=== PATIENT | male | born 1960 | race Caucasian/White ===

== ENCOUNTER 2016-05-25 22:42 | Emergency (ER) | payer BC ==
[~2016-05-25] VITALS: Ht 182.9 cm; Wt 88.5 kg
[~2016-05-25 22:42] MED LIST: ASPEC81 PO; ATOR-24 PO; CLOP1TAB15 PO; LISI-461 PO; METO1TAB69 PO; NTRSLP4 SL
[2016-05-25 22:44] VITALS: BP 118/75; PULSE 107; TEMP 36.6; O2SAT 97; Ht 182.9 cm; Wt 88.5 kg
--- NOTE | 2016-05-25 23:48 | DIAGNOSTIC IMAGING REPORT ---
SINGLE VIEW PELVIS; 2 VIEWS RIGHT HIP CLINICAL HISTORY: Fall with right hip pain. FINDINGS: 2 AP pelvic radiographs with AP and frog-leg views of the right hip are obtained. No prior studies are available for comparison at the time of dictation. The skeletal structures are well mineralized. No fracture is seen in the hips or bony pelvis. The joint spaces of the hips are preserved. The sacroiliac joints are normal in appearance. The overlying soft tissues are normal as visualized. IMPRESSION: There is no radiographic evidence of fracture in the hips or bony pelvis. Electronically signed by: Dusty Buenrostro M.D. 05/25/2016 11:46 PM Dictated Date/Time: 05/25/2016 11:45 PM
[2016-05-26] MEDS ORDERED: ASPI81TA28 PO (00:01)
--- NOTE | 2016-05-26 01:14 | EMERGENCY ROOM VISIT NOTE ---
History Report prepared by Morris: Christy Joseph Under the Supervision of: Dr. Reed Hargrove D.O. First contact with patient: 23:11 Chief Complaint: HIP PAIN Stated Complaint: FELL ON ICE,BACK PAIN History of Present Illness The patient is a 56 year old male who presents to the Emergency Room via with complaints of worsening right hip pain following a fall this afternoon. He rates his pain as a 10/10. Today, the patient was getting out of his truck when he slipped on some ice and fell onto his back. The patient is unable to bear weight on his right leg. His right leg is now numb. Source of History: patient Onset: this afternoon Position: other (right hip) Symptom Intensity: 10/10 Quality: other (hip pain) Timing: worsening Associated Symptoms: + numbness Note: The patient is unable to bear weight on his right leg. Review of Systems See HPI for pertinent positives & negatives. A total of 10 systems reviewed and were otherwise negative. Past Medical & Surgical Medical Problems: (1) FX ANKLE NOS-CLOSED Family History Patient reports no known family medical history. Social History Smoking Status: Current Every Day Smoker Alcohol Use: occasionally Marital Status: Occupation Status: employed Current/Historical Medications Scheduled Aspirin (Aspirin Ec), 81 MG PO DAILY Atorvastatin (Lipitor), 80 MG PO DAILY Clopidogrel (Plavix), 75 MG PO DAILY Lisinopril (Zestril), 10 MG PO DAILY Metoprolol Succ (Toprol Xl) (Toprol-Xl ), 100 MG PO DAILY Scheduled PRN [Ntrslp4], 0.4 MG SL UD PRN Allergies Coded Allergies: No Known Allergies (Verified , 05/26/16) Physical Exam Vital Signs Date Time Temp Pulse Resp B/P Pulse Ox O2 Delivery O2 Flow Rate FiO2 05/25/16 22:44 36.6 107 18 118/75 97 Room Air Physical Exam CONSTITUTIONAL/VITAL SIGNS: Reviewed / noted above. GENERAL: Non-toxic in appearance. INTEGUMENTARY: Warm, dry, and [place]. HEAD: Normocephalic. EYES: without scleral icterus or trauma. ENT/OROPHARYNX: clear and moist. LYMPHADENOPATHY/NECK: Is supple without lymphadenopathy or meningismus. RESPIRATORY: Lungs clear and equal. CARDIOVASCULAR: Regular rate and rhythm. GI/ABDOMEN: Soft and nontender. No organomegaly or pulsatile mass. No rebound or guarding. Normal bowel sounds. EXTREMITIES: Warm and well perfused. BACK: No CVA tenderness. NEUROLOGICAL: Intact without focal deficits. PSYCHIATRIC: normal affect. MUSCULOSKELETAL: Normally developed with good muscle tone. Tenderness to palpation over the right lateral hip and posterior iliac crest and upper gluteal region on the right. Medical Decision & Procedures ER Provider Diagnostic Interpretation: X ray results and stated below per my interpretation and radiology interpretation. SINGLE VIEW PELVIS; 2 VIEWS RIGHT HIP CLINICAL HISTORY: Fall with right hip pain. FINDINGS: 2 AP pelvic radiographs with AP and frog-leg views of the right hip are obtained. No prior studies are available for comparison at the time of dictation. The skeletal structures are well mineralized. No fracture is seen in the hips or bony pelvis. The joint spaces of the hips are preserved. The sacroiliac joints are normal in appearance. The overlying soft tissues are normal as visualized. IMPRESSION: There is no radiographic evidence of fracture in the hips or bony pelvis. Electronically signed by: Dusty Buenrosrto M.D. 05/25/2016 11:46 PM Dictated Date/Time: 05/25/2016 11:45 PM ED Course 2313: Previous medical records were reviewed. The patient was evaluated in room C8. A complete history and physical examination was performed. 0114: On reevaluation, the patient is doing well. I discussed the results and findings with the patient. He verbalized agreement of the treatment plan. The patient was discharged home. Medical Decision The patient is a 56 year old male who presents to the ED with complaints of hip pain. The patient states that he slipped on the ice earlier today and landed on his hip. He is complaining of pain in that area as detailed above. An x- ray of the pelvis and hip did not reveal any bony abnormality. The patient abdominal pain medication. He is felt to be stable for discharge and outpatient follow-up. Differential diagnosis: Etiologies such as fracture, dislocation, intra-abdominal, pneumothorax, intrathoracic , intracranial, neurologic, as well as other traumatic pathologies were entertained. Impression Primary Impression: Contusion, hip Scribe Attestation The scribe's documentation has been prepared under my direction and personally reviewed by me in its entirety. I confirm that the note above accurately reflects all work, treatment, procedures, and medical decision making performed by me. Departure Information Dispostion Home / Self-Care Referrals Keaton Jackson M.D. (PCP) Patient Instructions My [facility]
[2016-05-27] MEDS ORDERED: PRED20TA PO (13:49)
[2016-05-27] MEDS ORDERED: OXYC-57 PO (13:49)
[2016-05-27] MEDS ORDERED: DOCU-94 PO (13:49)
== END 2016-05-26 01:15 | disposition home or self-care (01) ==
LOC: C.EDB 22:42 → C.EDC 05-26 01:15
DX: S70.01XA Contusion of right hip, initial encounter (principal); W01.0XXA Fall on same level from slipping, tripping and stumbling without subsequent striking against object, initial encounter; F17.210 Nicotine dependence, cigarettes, uncomplicated; Z79.82 Long term (current) use of aspirin; Z79.899 Other long term (current) drug therapy; Z87.81 Personal history of (healed) traumatic fracture

== ENCOUNTER 2016-05-27 09:08 | Emergency (ER) | payer BC ==
[~2016-05-27] VITALS: Ht 188 cm; Wt 89.0 kg
[~2016-05-27 09:08] MED LIST changes: -ASPEC81 PO; +ASPI81TA28 PO
[2016-05-27 09:21] VITALS: TEMP 36.8; Ht 188 cm; Wt 89.0 kg
--- NOTE | 2016-05-27 09:56 | EMERGENCY ROOM VISIT NOTE ---
History Report prepared by Shanellibwil: Aimee Purcell Under the Supervision of: Dr. Herber Montoya M.D. First contact with patient: 09:46 Chief Complaint: BACK PAIN Stated Complaint: BACK PAIN-FELL ON ICE SATURDAY History of Present Illness The patient is a 56 year old male who presents to the Emergency Room with complaints of worsening back pain. He slipped and fell on ice 3 days ago and landed on his low back. He was seen here in the ED the night he fell and had a hip X-Ray, which was negative for fracture. The patient rates his current pain as an 8/10 and reports the pain radiates down his right leg. Movement and ambulation worsen his discomfort. He still has normal sensation in both legs and denies any numbness or weakness. He denies any other symptoms currently. 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 Please see Additional Medical History Sheet. Past Medical & Surgical Medical Problems: (1) FX ANKLE NOS-CLOSED Family History Patient reports no known family medical history. Social History Smoking Status: Current Every Day Smoker Alcohol Use: occasionally Drug Use: none Marital Status: Housing Status: lives with family Occupation Status: employed Current/Historical Medications Scheduled Aspirin (Aspirin Ec), 81 MG PO DAILY Atorvastatin (Lipitor), 80 MG PO DAILY Clopidogrel (Plavix), 75 MG PO DAILY Docusate Sodium (Colace), 100 MG PO BID Lisinopril (Zestril), 10 MG PO DAILY Metoprolol Succ (Toprol Xl) (Toprol-Xl ), 100 MG PO DAILY Prednisone (Prednisone), 20 MG PO BID Scheduled PRN Oxycodone/Acetaminophen 5MG/325MG (Percocet 5MG/325MG), 1-2 TABLETS PO Q4H PRN for Pain [Ntrslp4], 0.4 MG SL UD PRN Allergies Coded Allergies: No Known Allergies (Verified , 05/27/16) Physical Exam Vital Signs Date Time Temp Pulse Resp B/P Pulse Ox O2 Delivery O2 Flow Rate FiO2 05/27/16 14:06 76 18 146/72 96 05/27/16 13:07 77 16 145/72 97 Room Air 05/27/16 10:53 93 18 149/83 98 Room Air 05/27/16 09:21 36.8 93 18 166/91 98 Room Air Physical Exam GENERAL: Patient awake, alert, oriented x 3. Patient follows commands. Patient does not appear toxic. Patient is adequately hydrated and well- nourished. SKIN: No erythema, pallor, cyanosis or rash HEENT: Normal head, pupils equal, reactive to light and accommodation. Ears normal. Oral cavity and posterior pharynx appear normal. Neck: Without adenopathy, no neck vein distention. LUNGS: Clear to auscultation. No wheezes, no rales, no rhonchi. BACK: Some ecchymosis to lateral L4 and L5 area. Some tenderness along L4 and L5. HEART: No murmurs. No gallops. No rubs ABDOMEN: No masses, no rebound, no hepatomegaly or splenomegaly. EXTREMITIES: No signs of trauma. No pedal or pretibial edema. No calf or thigh tenderness. Motor, neuro and sensation are intact. NEUROLOGIC: Cranial nerves II-XII within normal limits. No gross motor sensory function deficits. Deep tendon reflexes are brisk and equal bilaterally. Medical Decision & Procedures ER Provider Diagnostic Interpretation: This X-Ray was reviewed and interpreted by myself and the radiologist. L-SPINE MIN 4 VIEWS ROUTINE IMPRESSION: 1. No acute lumbar spine fracture or subluxation identified. 2. Multilevel degenerative disc disease, most pronounced at L5-S1. Electronically signed by: Gagan Gay M.D. 05/27/2016 10:23 AM This MRI was reviewed and interpreted by the radiologist and reviewed by myself. MRI OF THE LUMBAR SPINE WITHOUT CONTRAST IMPRESSION: 1. No acute traumatic findings within the lumbar spine by MRI. No fracture. 2. Mild multilevel degenerative disc disease at L4-L5 and L5-S1. No significant canal stenosis. Mild to moderate bilateral neural foraminal narrowing at L5-S1. Electronically signed by: Gagan Gay M.D. 05/27/2016 12:40 PM Laboratory Results 05/27/16 10:51 05/27/16 10:51 Test 05/27/16 10:51 Red Blood Count 4.21 M/uL (4.7-6.1) Mean Corpuscular Volume 94.8 fL (80-100) Mean Corpuscular Hemoglobin 33.3 pg (25-34) Mean Corpuscular Hemoglobin Concent 35.1 g/dl (32-36) RDW Standard Deviation 46.7 fL (36.4-46.3) RDW Coefficient of Variation 13.5 % (11.5-14.5) Mean Platelet Volume 9.6 fL (7.4-10.4) Anion Gap 9.0 mmol/L (3-11) Est Creatinine Clear Calc Drug Dose 119.9 ml/min Estimated GFR () 116.0 Estimated GFR (Non- 100.1 BUN/Creatinine Ratio 15.4 (10-20) Calcium Level 8.7 mg/dl (8.5-10.1) Laboratory results as stated above per my review. Medications Administered Medications (Trade) Dose Ordered Sig/Kelly Route Start Time Stop Time Status Last Admin Dose Admin Oxycodone/ Acetaminophen (Percocet 5-325mg Tab) 2 tab NOW ONCE PO 05/27/16 10:00 05/27/16 10:01 DC 05/27/16 09:55 2 TAB Morphine Sulfate (MoRPHine SULFATE INJ) 8 mg Q1H PRN IV 05/27/16 11:00 05/27/16 14:47 DC 05/27/16 13:55 8 MG Ondansetron HCl (Zofran Inj) 4 mg Q1HWA PRN IV 05/27/16 11:00 05/27/16 14:47 DC 05/27/16 11:08 4 MG ED Course 0948: Past medical records reviewed. The patient was evaluated in room B10. A complete history and physical examination was performed. 1000: Percocet 5/325 mg 2 tab PO. 1100: Zofran 4 mg IV, Morphine Sulfate 8 mg IV. 1105: I reevaluated the patient. He is resting comfortably. 1335: I reevaluated the patient. He is feeling much better. I discussed his results and discharge instructions and he verbalized complete understanding and agreement. Medical Decision The differential diagnoses considered include: Lumbosacral fracture, contusion, cauda equina syndrome. Lumbar spine x-rays followed by MRI were performed. The patient does have significant degenerative changes with some narrowing of his canal. I believe this is the cause of his pain. He was much improved prior to discharge. The patient will be placed on steroids and pain medication. He is to follow-up with his family physician most likely will require evaluation by a back surgeon. [place] Drug Monitoring Program Search Results: no issues identified Impression Primary Impression: Degenerative joint disease (DJD) of lumbar spine Additional Impression: Sciatica Scribe Attestation The scribe's documentation has been prepared under my direction and personally reviewed by me in its entirety. I confirm that the note above accurately reflects all work, treatment, procedures, and medical decision making performed by me. Departure Information Dispostion Home / Self-Care Prescriptions Oxycodone/Acetaminophen 5MG/325MG (PERCOCET 5MG/325MG) Tab 1-2 TABLETS PO Q4H Y for Pain, #30 TAB Prov: Herber Montoya M.D. 05/27/16 Docusate Sodium (COLACE) 100 Mg Cap 100 MG PO BID, #20 CAP Prov: Herber Montoya M.D. 05/27/16 Prednisone (Prednisone) 20 Mg Tab 20 MG PO BID for 5 Days, #10 TAB Prov: Herber Montoya M.D. 05/27/16 Referrals Keaton Jackson M.D. (PCP) Patient Instructions ED Sciatica, My [facility] Additional Instructions 20 mg of prednisone twice a day for 5 days. 1-2 Percocet every 4 hours as needed for moderate to severe pain. Do not drive or operate machinery while taking Percocet. 1 Colace twice a day as long as you are taking Percocet. Follow-up with your family physician within the next 7 days. Work Instructions Return To Work: 3 days Specific Date: 05/31/16 Problem Qualifiers
[2016-05-27] MEDS ORDERED: OXYCODONE/ACETAMINOPHEN 5-325 TAB PO ONE (10:00)
--- NOTE | 2016-05-27 10:25 | DIAGNOSTIC IMAGING REPORT ---
L-SPINE MIN 4 VIEWS ROUTINE CLINICAL HISTORY: Fall. Suspect L4-L5 fracture. COMPARISON: Lumbar spine radiographs June 01, 2008. FINDINGS: Alignment of lumbar spine is anatomic. No acute fracture is identified. There is mild to moderate multilevel degenerative disc disease most pronounced at L5-S1. IMPRESSION: 1. No acute lumbar spine fracture or subluxation identified. 2. Multilevel degenerative disc disease, most pronounced at L5-S1. Electronically signed by: Gagan Gay M.D. 05/27/2016 10:23 AM Dictated Date/Time: 05/27/2016 10:21 AM
[2016-05-27] MEDS ORDERED: ONDANSETRON INJ 2 MG/ML 2 ML VIAL IV PRN (11:00)
[2016-05-27] MEDS: MoRPHine SULFATE 10 MG/ML CARP/VIAL IV PRN ×2 (11:08→13:55)
[2016-05-27 11:13] LABS: HEMATOCRIT 39.9 % (42-52); MEAN CELL VOLUME 94.8 fL (80-100); MEAN CORPUSCULAR HEMOGLOBIN 33.3 pg (25-34); MEAN CORPUSCULAR HGB CONC 35.1 g/dl (32-36); MEAN PLATELET VOLUME 9.6 fL (7.4-10.4); PLATELET COUNT 227 K/uL (130-400); RED BLOOD COUNT 4.21 M/uL (4.7-6.1); WHITE BLOOD COUNT 8.28 K/uL (4.8-10.8)
[2016-05-27 11:30] LABS: BUN/CREATININE RATIO 15.4 (10-20); CALCIUM 8.7 mg/dl (8.5-10.1); CREATININE 0.81 mg/dl (0.60-1.40); POTASSIUM 4.2 mmol/L (3.5-5.1)
--- NOTE | 2016-05-27 12:41 | DIAGNOSTIC IMAGING REPORT ---
MRI OF THE LUMBAR SPINE WITHOUT CONTRAST CLINICAL HISTORY: Severe lower lumbar pain following fall 2 days ago. COMPARISON STUDY: Lumbar spine radiographs June 01, 2008 and May 27, 2016. TECHNIQUE: Utilizing a 1.5 Carri magnet and dedicated coil, multiplanar, multiecho imaging of the lumbar spine was performed without IV contrast. FINDINGS: For purposes of numbering on this exam, the L5-S1 disc space is assigned to axial image 23 of 25. Alignment of the lumbar spine is anatomic with the exception of slight retrolisthesis of L5 on S1. Vertebral body heights are maintained. There is no evidence for fracture. The conus terminates at the upper L1 level. There is no intracanalicular mass or fluid collection. Paravertebral soft tissues are unremarkable. L1-2: The central canal and neural foramen are patent. L2-3: The central canal and neural foramen are patent. L3-4: There is mild facet arthrosis. The central canal and neural foramen are patent. L4-5: There is minimal disc bulge with a tiny central disc protrusion. Mild facet arthrosis is present. The central canal and neural foramen are patent. L5-S1: There is disc space narrowing with disc bulge, ligamentous hypertrophy and facet arthrosis. The central canal and lateral recesses are patent. There is mild to moderate narrowing of the right neural foramen as well as the left neural foramen. IMPRESSION: 1. No acute traumatic findings within the lumbar spine by MRI. No fracture. 2. Mild multilevel degenerative disc disease at L4-L5 and L5-S1. No significant canal stenosis. Mild to moderate bilateral neural foraminal narrowing at L5-S1. Electronically signed by: Gagan Gay M.D. 05/27/2016 12:40 PM Dictated Date/Time: 05/27/2016 12:36 PM
[2016-05-27] MEDS ORDERED: OXYC-57 PO (13:49)
[2016-05-27] MEDS ORDERED: DOCU-94 PO (13:49)
[2016-05-27] MEDS ORDERED: PRED20TA PO (13:49)
[2016-05-27 14:06] VITALS: BP 146/72; PULSE 76; O2SAT 96
== END 2016-05-27 14:08 | disposition home or self-care (01) ==
LOC: C.EDB 09:09
DX: M47.816 Spondylosis without myelopathy or radiculopathy, lumbar region (principal); M54.30 Sciatica, unspecified side; F17.210 Nicotine dependence, cigarettes, uncomplicated; Z79.82 Long term (current) use of aspirin; Z79.02 Long term (current) use of antithrombotics/antiplatelets; Z79.899 Other long term (current) drug therapy

== ENCOUNTER 2023-03-23 16:41 | Observation (INO) ==
--- OUTSIDE RECORDS SUMMARY | 2023-03-23 16:47 | External Medical Summary ---
Author Name Unknown Address Unknown Organization : Laboratory Report Ordering Provider Test Date Status VIOLETDANIEL 02/27/2023 11:52:00 Final Observation Date Value Abnormality Reference (Units ) Status Color of Urine by Auto 02/27/2023 11:52:00 Sanjuana Abnormal Light Yellow, Yellow Final Clarity, Urine 02/27/2023 11:52:00 Clear Clear Final Glucose [Mass/volume] in Urine by Automated test strip 02/27/2023 11:52:00 Negative Negative (mg/dL) Final Bilirubin.total [Presence] in Urine by Automated test strip 02/27/2023 11:52:00 Moderate Abnormal Negative Final Ketones [Mass/volume] in Urine by Automated test strip 02/27/2023 11:52:00 15 Abnormal Negative (mg/dL) Final Specific gravity, Urine 02/27/2023 11:52:00 >=1.030 1.003-1.030 Final Hemoglobin [Presence] in Urine by Automated test strip 02/27/2023 11:52:00 Negative Negative Final pH, Urine 02/27/2023 11:52:00 5.5 5.0, 5.5, 6.0, 6.5, 7.0, 7.5 (units) Final Protein [Mass/volume] in Urine by Automated test strip 02/27/2023 11:52:00 30 Abnormal Negative (mg/dL) Final Urobilinogen, Urine 02/27/2023 11:52:00 0.2 0.2, 1.0 (mg/dL) Final Nitrite [Presence] in Urine by Automated test strip 02/27/2023 11:52:00 Negative Negative Final Leukocyte esterase [Presence] in Urine by Automated test strip 02/27/2023 11:52:00 Negative Negative Final Performing Location
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
--- OUTSIDE RECORDS SUMMARY | 2023-03-23 16:47 | External Medical Summary | Summary of Care ---
Author Name Unknown Organization [facility] Address [address] [facility] [address] Phone [phone] Care Team Providers Care Automatic Data Processing Planner Name Role Phone Dre Randle MD Primary Care Provider +1- [phone] Reason for Visit * Reason Comments eRx-Medication Refill Encounter Details Date Type Department Care Team (Late st Contact Info) Description 02/13/2023 Refill Cardiology, [facility] [address] [place] [address] Rajwinder Isaacs PA-C [address] [place] [phone] Allergies No known active allergiesdocumented as of this encounter (statuses as of 02/13/2023) Medications Medication Sig Dispensed Refills Start Date [...] evening (anxiety). 60 Tablet 1 06/16/2021 Active Escitalopram Oxalate 10 MG Oral Tablet (Lexapro)Indicati ons:Anxiety associated with depression Take by mouth 1 Tablet in the morning. 1/2 tab daily for 1st 7 days then 1 tab daily. 30 Tablet 5 07/13/2021 Active Metoprolol Succinate ER 100 MG Oral Tablet Extended Release 24 Hour (toPROL XL)Indications:Co ronary artery disease due to lipid rich plaque,HTN, goal below 130/80,Presence of drug coated stent in right coronary artery Take 1 Tablet by mouth daily. 90 Tablet 3 06/07/2022 Active Clopidogrel Bisulfate 75 MG Oral Tablet (pLAVix)Indicatio ns:Coronary artery disease involving mechoopda coronary artery of mechoopda heart without angina pectoris Take 1 Tablet by mouth daily. 90 Tablet 3 06/07/2022 Active Lisinopril 10 MG Oral Tablet (Prinivil)Indicat ions:CAD (coronary artery disease) Take 1 Tablet by mouth daily. 90 Tablet 3 06/07/2022 Active predniSONE 10 MG Oral Tablet (Deltasone)Indica tions:Allergic reaction, initial encounter Take 5 tabs for 2 days, 4 tabs for 2 days, 3 tabs for 2 days, 2 tabs for 2 days 1 tab for 2 days 30 Tablet 0 12/09/2022 Active Rosuvastatin Calcium 40 MG Oral Tablet (Crestor) TAKE 1 TABLET IN THE MORNING 90 Tablet 3 02/13/2023 Active Rosuvastatin Calcium 40 MG Oral Tablet (Crestor) Take 1 Tablet (40 mg) by mouth in the morning. 90 Tablet 3 03/22/2022 02/13/2023 Discontinued documented as of this encounter (statuses as of 02/13/2023) Active Problems Problem Noted Date Diagnosed Date Anxiety associated with depression 04/05/2021 Pain of [...] as of this encounter (statuses as of 02/13/2023) Resolved Problems Problem Noted Date Diagnosed Date Resolved Date HTN, goal below 130/80 05/09/201206/22 Elevated blood pressure, situational 10/24/2007 05/09/2012 documented as of this encounter (statuses as of 02/13/2023) Immunizations Name Administration Dates Next Due COVID-19 mRNA, LNP-s, No Pre serve, 2-Dose Series ([employer]) 02/09/2021 SEASONAL INFLUENZA, PF, 6 M & [...] 0.6 oz pure alcohol) 5-8 every weekend Sex and Gender Information Value Date Recorded Sex Assigned at Not on file Gender Identity Not on file Sexual Orientation Not on file Job Start Date Occupation Industry Not on file Not on file Not on file documented as of this encounter Miscellaneous Notes * Telephone Encounter - Rajwinder Isaacs PA-C - 02/13/2023 4:43 PM EDTSigned Prescriptions: Disp Refills Rosuvastatin Calcium 40 MG Oral Tablet (Cr*90 Tab*3 Sig: TAKE 1 TABLET IN THE MORNING Authorizing Provider: RAJWINDER ISAACS * Telephone Encounter - Leda Franklin LPN - 02/13/2023 1:52 PM EDTPending Prescriptions: Disp Refills Rosuvastatin Calcium 40 MG Oral Tablet [Ph*90 Tab*3 Sig: TAKE 1 TABLET IN THE MORNING * Telephone Encounter - Leda Franklin LPN - 02/13/2023 1:52 PM EDT Pending Prescriptions: Disp Refills Rosuvastatin Calcium 40 MG Oral Tablet (C*90 Tab*3 Sig: TAKE 1 TABLET IN THE MORNING documented in this encounter Plan of Treatment Upcoming Encounters Date Type Department Care Team (Late st Contact Info) Description 02/20/2023 8:30 AM EST Office Visit Cardiology, [facility] [address] [facility] [place] [address] Rajwinder Isaacs PA-C [address] [facility] [place] [phone] Scheduled Procedures Name Priority Associated Diagnoses Date/Ti me COLONOSCOPY FLEXIBLE PROXIMAL DIAGNOSTIC Recall History of colon polyps Health Maintenance Due Date Last Done Comments DISCUSS TOBACCO CESSATION (REFER TO SMARTSET #7382) 1960 Pneumococcal Vaccine: Pediatrics (0 to 5 Years) and At-Risk Patients (6 to 64 Years) (1 - PCV) 1967 HIV Screening 01/29/1976 Albumin/Creatinine Ratio 1979 Hepatitis C Screening 1979 Zoster Vaccines (1 of 2) 2011 Depression Screening 04/16/2020 04/16/2019 COLONOSCOPY-EVERY 5 YRS AGES 18-100 04/26/2020 04/26/2015, 04/26/2015 COVID-19 Vaccine (24 season) 2022 02/09/2021 Influenza Vaccine (FLU shot) (#1) 2022 01/19/2022, 01/20/2021, 01/20/2021, Additional history exists GFR 01/24/2023 01/24/2022, 01/13, 11/23/2020, Additional history exists Diabetes Screening 01/24/2025 01/24/2022, 1 , 11/23/2020, Additional history exists DTaP,Tdap,and Td Vaccines (4 - Td or Tdap) 10/05/2025 10/06/2015, 10/06/2015, 07/10/2013, Additional history exists LUNG CANCER SCREENING - USE SMARTSET [id number] Completed 10/18/2022, 10/13/2021, 12/29/2019, Additional history exists [...] Not on filedocumented as of this encounter Care Teams Automatic Data Processing Planner Relationship Specialty Start Date End Date Dre Randle MD [address] [place] [address] PCP - General 01/14/00 documented as of this encounter
--- OUTSIDE RECORDS SUMMARY | 2023-03-23 16:47 | External Medical Summary | Summary of Care ---
Author Name Unknown Organization [facility] Address [address] [place] [address] Phone [phone] Care Team Providers Care Competency Evaluated Nurse Aide Name Role Phone Dre Randle MD Primary Care Provider +1- [phone] Encounter Details Date Type Department Care Team (Late st Contact Info) Description 03/14/2023 Documentation Hematology Oncology [place] [address] [place] [address] Carolina Wright, MONA Allergies No known active allergiesdocumented as of this encounter (statuses as of 03/14/2023) Medications Medication Sig Dispensed Refills Start Date End Date Status ASPIRIN 81 MG PO CHEW One pill by mouth once a day with food 100 Tab 5 05/08/2012 Active Sildenafil Citrate 20 MG Oral Tablet (Revatio)Indication s:Other male erectile dysfunction Take two or three pills 30 minutes to 4 hours before sexual activity as needed 15 Tablet 5 05/30/2021 Active busPIRone HCl 10 MG Oral Tablet (Buspar)Indications :Panic attack Take by mouth 1 Tablet as needed in the morning AND 1 Tablet as needed at noon AND 1 Tablet as needed in the evening (anxiety). 60 Tablet 1 06/16/2021 Active Additional Information Patient not taking.Reported on 02/20/2023 Metoprolol Succinate ER 100 MG Oral Tablet Extended Release 24 Hour (toPROL XL)Indications:Valeria nary artery disease due to lipid rich plaque,HTN, goal below 130/80,Presence of drug coated stent in right coronary artery Take 1 Tablet by mouth daily. 90 Tablet 3 06/07/2022 Active Clopidogrel Bisulfate 75 MG Oral Tablet (pLAVix)Indications :Coronary artery disease involving [place] coronary artery of [place] heart without angina pectoris Take 1 Tablet by mouth daily. 90 Tablet 3 06/07/2022 Active Lisinopril 10 MG Oral Tablet (Prinivil)Indicatio ns:CAD (coronary artery disease) Take 1 Tablet by mouth daily. 90 Tablet 3 06/07/2022 Active Rosuvastatin Calcium 40 MG Oral Tablet (Crestor) TAKE 1 TABLET IN THE MORNING 90 Tablet 3 02/13/2023 Active Ciprofloxacin HCl 500 MG Oral Tablet (Cipro) Take 1 Tablet by mouth in the morning and 1 Tablet before bedtime. 10 Tablet 0 02/27/2023 Active documented as of this encounter (statuses as of 03/14/2023) Active Problems Problem Noted Date Diagnosed Date [...] as of this encounter (statuses as of 03/14/2023) Resolved Problems Problem Noted Date Diagnosed Date Resolved Date HTN, goal below 130/80 05/09/201206/22 Elevated blood pressure, situational 10/24/2007 05/09/2012 documented as of this encounter (statuses as of 03/14/2023) Immunizations Name Administration Dates Next Due COVID-19 mRNA, LNP-s, No Pre serve, 2-Dose Series ([employer]) 02/09/2021 SEASONAL INFLUENZA, PF, 6 M & [...] as of this encounter Miscellaneous Notes * Research Note - Carolina Wright RN - 03/14/2023 1:43 PM EST Images from the original note were not included. At the request of urology clinic, this patient has been screened for possible clinical trials options for their diagnosis. This patient may be eligible for the following trial pending further review: NRG-GU009: Parallel Phase III Randomized Trials for High Risk Prostate Cancer Evaluating De-Intensification for Lower Genomic Risk and Intensification of Concurrent Therapy for Higher Genomic Risk With Radiation (PREDICT-RT) (RADIATION THERAPY COMPONENT) NRG-GU010: PARALLEL PHASE III RANDOMIZED TRIALS OF GENOMICRISK STRATIFIED UNFAVORABLE INTERMEDIATE RISK PROSTATE CANCER: DE-INTENSIFICATION AND INTENSIFICATION CLINICAL TRIAL EVALUATION (GUIDANCE If metastatic disease is present, S1802 Phase III Randomized Trial of Standard Systemic Therapy (SST) Versus Standard Systemic Therapy Plus Definitive Treatment (Surgery or Radiation) of the Primary Tumor in Metastatic Prostate Cancer). Patient screened by Carolina Wright RN, BSN,CRC II Oncology Clinical Research Coordinator II [facility] Department of Hematology-Oncology Research [facility] [phone] documented in this encounter Plan of Treatment Upcoming Encounters Date Type Department Care Team (Late st Contact Info) Description 04/01/2023 11:30 AM EST Office Visit Urology, [place] [address], [place] [id number] Tish Mello MD [address] [place] [address] Scheduled Procedures Name Priority Associated Diagnoses Date/Ti me COLONOSCOPY FLEXIBLE PROXIMAL DIAGNOSTIC Recall History of colon polyps Health Maintenance Due Date Last Done Comments DISCUSS TOBACCO CESSATION (REFER TO SMARTSET #1681) 1960 Pneumococcal Vaccine: Pediatrics (0 to 5 [...] 01/19/2022, 01/20/2021, 01/20/2021, Additional history exists GFR 02/21/2024 02/20/2023, 01/13, 01/24/2021, Additional history exists DTaP,Tdap,and Td Vaccines (4 - Td or Tdap) 10/05/2025 10/06/2015, 10/06/2015, 07/10/2013, Additional history exists Diabetes Screening 02/20/2026 02/20/2023, 1 , 01/24/2021, Additional history exists LUNG CANCER SCREENING - USE SMARTSET 95403 Completed 10/18/2022, 10/13/2021, 12/29/2019, Additional history exists [...] filedocumented as of this encounter Care Teams Competency Evaluated Nurse Aide Relationship Specialty Start Date End Date Dre Randle MD [address] [place] [address] PCP - General 01/14/00 documented as of this encounter
--- OUTSIDE RECORDS SUMMARY | 2023-03-23 16:47 | External Medical Summary | Summary of Care ---
Author Name Unknown Organization [facility] Address [address] [facility] [place] [address] Phone [phone] Care Team Providers Care Photo Machine Operator Name Role Phone Dre Randle MD Primary Care Provider +1- [phone] Reason for Visit * Reason Comments Follow Up Encounter Details Date Type Department Care Team (Late st Contact Info) Description 02/20/2023 8:30 AM EST Office Visit Cardiology, [facility] [address] [place] [address] Rajwinder Albright PAErin [address] [facility] [address] Coronary artery disease due to lipid rich [...] Oral Tablet (pLAVix)Indicatio ns:Coronary artery disease involving [place] coronary artery of [place] heart without angina pectoris Take 1 Tablet [...] mRNA, LNP-s, No Pre serve, 2-Dose Series ([employer]) 02/09/2021 SEASONAL INFLUENZA, PF, 6 M & [...] cardiology follow-up evaluation. History includes presentation to [facility] on 05/01/12 with acute chest discomfort [...] performed by Alex Garcia MD at END[facility] OTHER Right leg fx repair with two plates OTHER Removal of cyst left lip REMOVE TONSILS & ADENOIDS, UNDER 12 Family History Problem Relation Age of Onset Diabetes Father Social History: Smoker. 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 No illegal drug use. 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 . Complete review of systems is [...] RECOMMENDATIONS/PLAN: ASCVD. History of May 01, 2012 [place], 95% stenosis of the proximal right posterolateral artery status post drug-eluting stent implantation. Residual 50% mid LAD stenosis Stable, asymptomatic. Continue appropriate medical management Chronic cerebellar infarcts. Probable chronic microvascular ischemic change. History of moderate left internal carotid artery stenosis, mild right internal carotid artery stenosis, and distal left vertebral artery occlusion. Right carotid bruit, new. Refer for bilateral carotid duplex.Continue aspirin and statin, risk factor and lifestyle modification. Chronic tobacco use. Cessation advised. Annual CT lung cancer screening arranged by the lung cancerscreening program, due in October 2023 Dyslipidemia. LDL cholesterol 87 mg/dL, above optimal [...] This chart was completed in part utilizing [employer] Speech Voice Recognition Software. Grammatical errors, random [...] 02/27/2023 9:00 AM EST Imaging Vascular Lab, [facility] 2nd [facility], [address] [place] [address] Scheduled Orders Name Type Priority Associated Diagnoses [...] Comments DISCUSS TOBACCO CESSATION (REFER TO SMARTSET #3560) 1960 Pneumococcal Vaccine: Pediatrics (0 to 5 Years) and At-Risk Patients (6 to 64 Years) (1 - PCV) 1967 HIV Screening 01/29/1976 Albumin/Creatinine Ratio 1979 Hepatitis C Screening 1979 Zoster Vaccines (1 of 2) 2011 Depression Screening 04/16/2020 04/16/2019 COLONOSCOPY-EVERY 5 YRS AGES 18-100 04/26/2020 04/26/2015, 04/26/2015 COVID-19 Vaccine (2 - 2022-24 season) 2022 02/09/2021 Influenza Vaccine (FLU shot) (#1) 2022 01/19/2022, 01/20/2021, 01/20/2021, Additional history exists GFR 01/24/2023 01/24/2022, 01/13, 11/23/2020, Additional history exists Diabetes Screening 01/24/2025 01/24/2022, 1 , 11/23/2020, Additional history exists DTaP,Tdap,and Td Vaccines (4 - Td or Tdap) 10/05/2025 10/06/2015, 10/06/2015, 07/10/2013, Additional history exists LUNG CANCER SCREENING - USE SMARTSET [id number] Completed 10/18/2022, 10/13/2021, 12/29/2019, Additional history exists [...] sensation documented in this encounter Care Teams Photo Machine Operator Relationship Specialty Start Date End Date Dre Randle MD [address] [place] [address] PCP - General 01/14/00 documented as of this encounter"
--- OUTSIDE RECORDS SUMMARY | 2023-03-23 16:47 | External Medical Summary | Summary of Care ---
Author Name Unknown Organization [facility] Address [address] [facility] [address] Phone [phone] Care Team Providers Care Fuel Quality Tech Name Role Phone Dre Randle MD Primary Care Provider +1- [phone] Reason for Visit * Reason Comments Follow Up Encounter Details Date Type Department Care Team (Late st Contact Info) Description 02/20/2023 8:30 AM EST Office Visit Cardiology, [facility] [address] [place] [address] Rajwinder Albright PAErin [address] [place] [address] Coronary artery disease due to lipid rich [...] Oral Tablet (pLAVix)Indicatio ns:Coronary artery disease involving [place] coronary artery of [place] heart without angina pectoris Take 1 Tablet [...] mRNA, LNP-s, No Pre serve, 2-Dose Series ([employer]) 02/09/2021 SEASONAL INFLUENZA, PF, 6 M & [...] cardiology follow-up evaluation. History includes presentation to [facility] on 05/01/12 with acute chest discomfort [...] performed by Alex Garcia MD at ENDOSCOPY [facility] OTHER Right leg fx repair with two plates OTHER Removal of cyst left lip REMOVE TONSILS & ADENOIDS, UNDER 12 Family History Problem Relation Age of Onset Diabetes Father Social History: Smoker. 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 No illegal drug use. 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 . Complete review of systems is [...] RECOMMENDATIONS/PLAN: ASCVD. History of May 01, 2012 [place], 95% stenosis of the proximal right posterolateral [...] This chart was completed in part utilizing [employer] Speech Voice Recognition Software. Grammatical errors, random [...] encounter Miscellaneous Notes * Addendum Note - Bruna Jay RN - 02/20/2023 11:26 AM ESTAddended by: BRUNA JAY on: 02/20/2023 11:26 AM Modules accepted: Orders * Addendum Note - Rajwinder Albright PA-C - 02/20/2023 9:08 AM ESTAddended by: RAJWINDER ALBRIGHT on: 02/20/2023 09:08 AM Modules accepted: Level of Service documented in this encounter Plan of Treatment Upcoming Encounters Date Type Department Care Team (Late st Contact Info) Description 02/27/2023 9:00 AM EST Imaging Vascular Lab, [facility] 2nd [facility], [address] [place] [address] Scheduled Orders Name Type Priority Associated Diagnoses [...] Routine HTN, goal below 130/80 Ordered: 02/20/2023 VITAMIN B12 Lab Routine Disturbance of skin sensation Ordered: 02/20/2023 FOLIC ACID Lab Routine Disturbance of skin sensation Ordered: 02/20/2023 EKG EKG Routine Coronary artery disease due to lipid rich plaque HTN, goal below 130/80 Dyslipidemia, goal LDL below 70 Asymptomatic bilateral carotid artery stenosis Ordered: 02/20/2023 Scheduled Procedures Name Priority Associated Diagnoses Date/Ti me COLONOSCOPY FLEXIBLE PROXIMAL DIAGNOSTIC Recall History of colon polyps Health Maintenance Due Date Last Done Comments DISCUSS TOBACCO CESSATION (REFER TO SMARTSET #4522) 1960 Pneumococcal Vaccine: Pediatrics (0 to 5 [...] exists LUNG CANCER SCREENING - USE SMARTSET [id number] Completed 10/18/2022, 10/13/2021, 12/29/2019, Additional history exists [...] sensation documented in this encounter Care Teams Fuel Quality Tech Relationship Specialty Start Date End Date Dre Randle MD [address] [place] [address] PCP - General 01/14/00 documented as of this encounter"
--- OUTSIDE RECORDS SUMMARY | 2023-03-23 16:47 | External Medical Summary | Summary of Care ---
Author Name Unknown Organization [facility] Address [address] [place] [address] Phone [phone] Care Team Providers Care Senior Net Application Developer Name Role Phone Dre Randle MD Primary Care Provider +1- [phone] Encounter Details Date Type Department Care Team (Late st Contact Info) Description 02/25/2023 Telephone Cardiology, [facility] [address] [facility] [place] [address] Keaton Albright PA-C [address] [place] [address] Allergies No known active allergiesdocumented as of this encounter (statuses as of 02/25/2023) Medications Medication Sig Dispensed Refills Start Date [...] Oral Tablet (pLAVix)Indications :Coronary artery disease involving [place] coronary artery of [place] heart without angina pectoris Take 1 Tablet by mouth daily. 90 Tablet 3 06/07/2022 Active Lisinopril 10 MG Oral Tablet (Prinivil)Indicatio ns:CAD (coronary artery disease) Take 1 Tablet by mouth daily. 90 Tablet 3 06/07/2022 Active Rosuvastatin Calcium 40 MG Oral Tablet (Crestor) TAKE 1 TABLET IN THE MORNING 90 Tablet 3 02/13/2023 Active documented as of this encounter (statuses as of 02/25/2023) Active Problems Problem Noted Date Diagnosed Date [...] as of this encounter (statuses as of 02/25/2023) Resolved Problems Problem Noted Date Diagnosed Date Resolved Date HTN, goal below 130/80 05/09/201206/22 Elevated blood pressure, situational 10/24/2007 05/09/2012 documented as of this encounter (statuses as of 02/25/2023) Immunizations Name Administration Dates Next Due COVID-19 [...] encounter Miscellaneous Notes * Telephone Encounter - Anupama Estrdaa OSA - 02/25/2023 8:42 AM EST Urology referral placed by Keaton Albright for elevated PSA. First and only opening coming up is on July 14 in [place]. Please call pt to schedule. documented in this encounter Plan of Treatment Upcoming Encounters Date Type Department Care Team (Late st Contact Info) Description 02/27/2023 9:00 AM EST Imaging Vascular Lab, [facility] 2nd Floor, [address] [place] [address] Scheduled Procedures Name Priority Associated Diagnoses Date/Ti me COLONOSCOPY FLEXIBLE PROXIMAL DIAGNOSTIC Recall History of colon polyps Health Maintenance Due Date Last Done Comments DISCUSS TOBACCO CESSATION (REFER TO SMARTSET #9341) 1960 Pneumococcal Vaccine: Pediatrics (0 to 5 Years) and At-Risk Patients (6 to 64 Years) (1 - PCV) 1967 HIV Screening 01/29/1976 Albumin/Creatinine Ratio 1979 Hepatitis C Screening 1979 Zoster Vaccines (1 of 2) 2011 Depression Screening 04/16/2020 04/16/2019 COLONOSCOPY-EVERY 5 YRS AGES 18-100 04/26/2020 04/26/2015, 04/26/2015 COVID-19 Vaccine (2 - season) 2022 02/09/2021 Influenza Vaccine (FLU shot) (#1) 2022 01/19/2022, 01/20/2021, 01/20/2021, Additional history exists GFR 02/21/2024 02/20/2023, 01/13, 01/24/2021, Additional history exists DTaP,Tdap,and Td Vaccines (4 - Td or Tdap) 10/05/2025 10/06/2015, 10/06/2015, 07/10/2013, Additional history exists Diabetes Screening 02/20/2026 02/20/2023, 1 , 01/24/2021, Additional history exists LUNG CANCER SCREENING - USE SMARTSET [id number] Completed 10/18/2022, 10/13/2021, 12/29/2019, Additional history exists [...] filedocumented as of this encounter Care Teams Senior Net Application Developer Relationship Specialty Start Date End Date Dre Randle MD [address] [place] [address] PCP - General 01/14/00 documented as of this encounter
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
--- OUTSIDE RECORDS SUMMARY | 2023-03-23 16:47 | External Medical Summary | Summary of Care ---
Author Name Unknown Organization [facility] Address [address] [facility] [place] [address] Phone [phone] Care Team Providers Care Fashion Marketer Name Role Phone Dre Randle MD Primary Care Provider [phone]- [phone] Reason for Visit * Reason Comments Follow Up Encounter Details Date Type Department Care Team (Late st Contact Info) Description 02/20/2023 8:30 AM EST Office Visit Cardiology, [facility] [address] [place] [address] Rajwinder Albright PAErin [address] [place] [address] Coronary artery disease due to lipid rich [...] Oral Tablet (pLAVix)Indicatio ns:Coronary artery disease involving [place] coronary artery of [place] heart without angina pectoris Take 1 Tablet [...] mRNA, LNP-s, No Pre serve, 2-Dose Series ([employer]) 02/09/2021 SEASONAL INFLUENZA, PF, 6 M & [...] cardiology follow-up evaluation. History includes presentation to [facility] on 05/01/12 with acute chest discomfort while [...] by Alex Garcia MD at [facility] OTHER Right leg fx repair with two plates OTHER Removal of cyst left lip REMOVE TONSILS & ADENOIDS, UNDER 12 Family History Problem Relation Age of Onset Diabetes Father Social History: Smoker. 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 No illegal drug use. 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 . Complete review of systems is [...] RECOMMENDATIONS/PLAN: ASCVD. History of May 01, 2012 NE, 95% stenosis of the proximal right posterolateral [...] This chart was completed in part utilizing [employer] Speech Voice Recognition Software. Grammatical errors, random [...] 02/27/2023 9:00 AM EST Imaging Vascular Lab, [facility], [address] [place] [address] Scheduled Orders Name Type Priority Associated Diagnoses [...] Comments DISCUSS TOBACCO CESSATION (REFER TO SMARTSET #2356) 1960 Pneumococcal Vaccine: Pediatrics (0 to 5 [...] exists LUNG CANCER SCREENING - USE SMARTSET 80141 Completed 10/18/2022, 10/13/2021, 12/29/2019, Additional history exists [...] sensation documented in this encounter Care Teams Fashion Marketer Relationship Specialty Start Date End Date Dre Randle MD [address] [place] [address] PCP - General 01/14/00 documented as of this encounter"
--- OUTSIDE RECORDS SUMMARY | 2023-03-23 16:47 | External Medical Summary | Summary of Care ---
Author Name Unknown Organization [facility] Address [address] [place] [address] Phone [phone] Care Team Providers Care Co Founder And President Name Role Phone Phyllis Douglass MD Primary Care Provider [phone] Reason for Visit * Reason Comments NEW PATIENT * Evaluate & Treat - Unlimited Visits (Within 10 days (routine)) - Pending Review Specialty Diagnoses / Procedures Referred By Cydney bates Referred To Contact Urology Diagnoses Elevated PSA Keaton Albright PA-C [address] [place] [address] Referral ID Status Reason Start Date Expiration Date Visits Requested Visits Authorized [id number] Pending Review Specialty Services Required [phone] Encounter Details Date Type Department Care Team (Late st Contact Info) Description 02/27/2023 11:30 AM EST [facility] [address] [place], [place] [id number] Halle Rendon PA-C [address] [place], [place] [id number] Elevated prostate specific antigen (PSA)*; Malignant neoplasm of prostate (HCC) Allergies No known active allergiesdocumented as of this encounter (statuses as of 02/27/2023) Medications Medication Sig Dispensed Refills Start Date [...] Oral Tablet (pLAVix)Indications :Coronary artery disease involving kaw coronary 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 Take 1 Tablet [...] as of this encounter (statuses as of 02/27/2023) Active Problems Problem Noted Date Diagnosed Date [...] as of this encounter (statuses as of 02/27/2023) Resolved Problems Problem Noted Date Diagnosed Date Resolved Date HTN, goal below 130/80 05/09/201206/22 Elevated blood pressure, situational 10/24/2007 05/09/2012 documented as of this encounter (statuses as of 02/27/2023) Immunizations Name Administration Dates Next Due COVID-19 mRNA, LNP-s, No Pre serve, 2-Dose Series ([employer]) 02/09/2021 SEASONAL INFLUENZA, PF, 6 M & [...] Sign Reading Time Taken Comments Blood Pressure 141/78 02/27/2023 11:15 AM EST Pulse 94 02/27/2023 11:15 AM EST Temperature 36.8 C (98.3 F) 02/27/2023 11:[address] Respiratory Rate - - Oxygen Saturation - - Inhaled Oxygen Concentration - - Weight - - Height - - Body Mass Index - - documented in this encounter Progress Notes * Halle Rendon PA-C - 02/27/2023 11:07 AM EST NEW PATIENT EXAMINATION - Urology Name: Dima Robb Date: 02/27/2023 Time: 11:07 AM Location: Urology Clinic PCP: PHYLLIS DOUGLASS [facility] [place] [address] [phone] Chief Complaint: elevated PSA in one week. Dima Robb is a 63 year old male presents in consultation from Phyllis Douglass MD for evaluation of the above. I extensively reviewed the patient's record prior to the appointment. The patient presents to the clinic today with who provided portions of the patient's history. The patient has a PSA on 02/20/2023 which was 13.27 ng/ml. His PSA at 2015 was normal. The patient denies gross hematuria, dysuria, obstructive or irritative voiding complaints, flank pain, f/c, n/v/c/d. The patient has a family history of prostate malignancies at three uncles and one cousin. The patient is a current smoker at one pack a day for 40 years. The patient denies exposure to chemicals/dyes, chronic mcdonough, urolithiasis, recurrent UTI, chemotherapy, or pelvic radiation. He has no diabetes.He had heart attack at 2012 and he is taking Plavix and Asprin. Latest Reference Range & Units 08/03/15 14:59 02/20/23 00:00 PSA SCREENING <3.1 ng/mL 2.71 PSA-OUTSIDE LAB <4.00 NG/ML 13.27 tonja Past Medical History: Diagnosis Date NONE Past Surgical History: Procedure Laterality Date COLONOSCOPY, DIAGNOSTIC (RECTUM) 04/26/2015 hyperplastic polyps, diverticulosis, repeat 5 yrs COLONOSCOPY, DIAGNOSTIC (RECTUM) 04/26/2015 COLONOSCOPY FLEXIBLE PROXIMAL DIAGNOSTIC performed by Alex Garcia MD at ENDOSCOPY [facility] OTHER Right leg fx repair with two plates OTHER Removal of cyst left lip REMOVE TONSILS & ADENOIDS, UNDER 12 Social History Socioeconomic History Marital status: Spouse name: Not on file Number of children: Not on file Years of education: Not on file Highest education level: Not on file Occupational History Not on file Tobacco Use Smoking status: Every Day Packs/day: 1.00 Years: 30.00 Additional pack years: 0.00 Total pack years: 30.00 Types: Cigarettes Smokeless tobacco: Never Vaping Use Vaping Use: Never used Substance and Sexual Activity Alcohol use: Yes Alcohol/week: 12.5 standard drinks of alcohol Types: 15 12 oz of beer per week Comment: 5-8 every weekend Drug use: No Sexual activity: Not on file Other Topics Concern Not on file Social History Narrative Not on file Social Determinants of Health Financial Resource Strain: Not on file Food Insecurity: No Food Insecurity (04/16/2019) Hunger Vital Sign Worried About Running Out of Food in the Last Year: Never true Ran Out of Food in the Last Year: Never true Transportation Needs: Not on file Physical Activity: Not on file Stress: Not on file Social Connections: Not on file Intimate Partner Violence: Not on file Housing Stability: Not on file Family History Problem Relation Age of Onset Diabetes Father Current Outpatient Medications Medication Sig Dispense Refill ASPIRIN 81 MG PO CHEW One pill by mouth once a day with food 100 Tab 5 Sildenafil Citrate 20 MG Oral Tablet (Revatio) Take two or three pills 30 minutes to 4 hours beforesexual activity as needed 15 Tablet 5 busPIRone HCl 10 MG Oral Tablet (Buspar) Take by mouth 1 Tablet as needed in the morning AND 1 Tablet as needed at noon AND 1 Tablet as needed in the evening (anxiety). (Patient not taking: Reported on 02/20/2023) 60 Tablet 1 Metoprolol Succinate ER 100 MG Oral Tablet [...] TABLET IN THE MORNING 90 Tablet 3 No current facility-administered medications for this visit. Review of patient's allergies indicates: No Known Allergies ROS EXAM: CONSTITUTIONAL: No change in weight, No weakness, No fatigue and No fevers, sweats, or chills PULMONARY: No cough, No wheezing, No shortness of breath and No recent change in breathing CARDIOVASCULAR: No chest pain, No shortness of breath, No dyspnea on exertion, No edema and No syncope GASTROINTESTINAL: No abdominal pain, No significant change in appetite and No nausea, vomiting, diarrhea, or constipation MALE: See HPI NEUROLOGIC: Normal balance and No weakness PHYSICAL EXAM: VITAL SIGNS: There were no vitals taken for this visit. PSYCH/GENERAL APPEARANCE: no apparent distress, well - nourished, well developed MSK: no CVA tenderness RESPIRATORY: non-labored breathing, clear to auscultation bilaterally CARDIAC: regular rate and rhythm and no murmurs, no edema GASTRO-INTESTINAL: soft, non - obese, non - tender, non - distended, no masses palpable NEUROLOGIC: no focal deficits and gait normal : no urethral discharge. SKIN: No obvious cyanosis or ulcerations LABS Lab Results Component Value Date/Time PSA SCREENING 2.71 08/03/2015 02:59 PM PSA-OUTSIDE LAB 13.27 02/20/2023 12:00 AM Imaging: Non recent. Impression: 63 year old male with elevated PSA at 13.27 one week ago. His three uncles and one cousin had prostate cancer. He is doing well with his urination. He is taking Plavix and Asprin for his heart . Plan: 1. Prostate biopsy. 2. Instruction for fleet enema, Cipro 3. Stop Plavix and Asprin 5 days before biopsy. Halle Rendon PA-C 11:07 AM 02/27/2023 documented in this encounter Plan of Treatment Upcoming Encounters Date Type Department Care Team (Late st Contact Info) Description 03/11/2023 8:00 AM EST Office Visit Urology, [facility] [address] [place] [address] Jose Eduardo Cronin PA-C [address] [facility] [place] [address] 03/12/2023 9:30 AM EST Imaging Vascular Lab, [facility], [address] [address] 04/01/2023 11:30 AM EST Office Visit Urology, [facility] [address] [place] [address] Tish Mello MD [address] [place] [address] Scheduled Orders Name Type Priority Associated Diagnoses Orde r Schedule NEEDLE/PUNCH BIOPSY OF PROSTATE Procedures Routine Elevated prostate specific antigen (PSA) Malignant neoplasm of prostate (HCC) Ordered: 02/27/2023 Scheduled Procedures Name Priority Associated Diagnoses Date/Ti me COLONOSCOPY FLEXIBLE PROXIMAL DIAGNOSTIC Recall History of colon polyps Health Maintenance Due Date Last Done Comments DISCUSS TOBACCO CESSATION (REFER TO SMARTSET #[id number]) 1960 Pneumococcal Vaccine: Pediatrics (0 to 5 [...] exists LUNG CANCER SCREENING - USE SMARTSET 79538 Completed 10/18/2022, 10/13/2021, 12/29/2019, Additional history exists [...] Not on filedocumented as of this encounter Procedures Procedure Name Priority Date/Time Associated Diagnosis Comments URINALYSIS, POINT OF CARE [facility] 02/27/2023 11:52 AM EST documented in this encounter Results * (ABNORMAL) URINALYSIS, POINT OF CARE (02/27/2023 11:52 AM EST) Color, Urine Sanjuana(A) Light Yellow, Yellow 02/27/2023 12:01 PM EST [facility] Clarity, Urine Clear Clear 02/27/2023 12:01 PM EST [facility] Glucose, Urine Negative Negative mg/dL 02/27/2023 12:01 PM EST [facility] Bilirubin, Urine Moderate(A) Negative 02/27/2023 12:01 PM EST [facility] Ketone, Urine 15(A) Negative mg/dL 02/27/2023 12:01 PM [facility] Specific [place], Urine >=1.030 1.003 - 1.030 02/27/2023 12:01 PM EST [facility] Blood, Urine Negative Negative 02/27/2023 12:01 PM EST [facility] pH, Urine 5.5 5.0, 5.5, 6.0, 6.5, 7.0, 7.5 units 02/27/2023 12:01 PM EST [facility] Protein, Urine 30(A) Negative mg/dL 02/27/2023 12:01 PM [facility] Urobilinogen, Urine 0.2 0.2, 1.0 mg/dL 02/27/2023 12:01 PM [facility] Nitrite, Urine Negative Negative 02/27/2023 12:01 PM EST [facility] Esterase, Urine Negative Negative 02/27/2023 12:01 PM [facility] Urine 02/27/2023 11:5 2 AM EST 02/27/2023 12:00 PM EST Ronghe Rendon PA-C LAB POINT OF CARE TE ST DOCKED DEVICE UNSOLICITED RESULTS [facility] [address] [place] [address] documented in this encounter Visit Diagnoses Diagnosis Elevated prostate specific antigen (PSA)- Primary Malignant neoplasm of prostate (HCC) Malignant neoplasm of prostate documented in this encounter Care Teams Co Founder And President Relationship Specialty Start Date End Date Phyllis Douglass MD [address] [place] [address] PCP - General 01/14/00 documented as of this encounter
[2023-03-23] MEDS ORDERED: THIAMINE HCL 200 MG in SODIUM CHLORIDE 0.9% 50 ML IV STA (17:29)
[2023-03-23] MEDS ORDERED: SODIUM CHLORIDE 0.9% 1,000 ML IV SCH (17:30)
[2023-03-23] MEDS ORDERED: MAGNESIUM SULFATE / D5W 1 GM/100 ML BAG IV STA (17:45)
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
[2023-03-23 17:54] LABS: Albumin Globulin Ratio 1.8 (0.9-2); Albumin Level 4.2 gm/dl (3.4-5.0); BUN Creatinine Ratio 20.8 (10-20); Bilirubin,Total 0.9 mg/dl (0.2-1.0); Calcium 8.7 mg/dl (8.6-10.3); Creatinine Clr Calc Pharmacy 87.6 ml/min; Est GFR (African American) 97.8 ml/min; Est GFR (Non-African American) 84.4 ml/min; Globulin 2.4 gm/dl (2.5-4.0); Magnesium 1.7 mg/dl (1.7-2.4); Potassium 4.4 mmol/L (3.5-5.1); Total Protein 6.6 gm/dl (6.0-8.3)
[2023-03-23 17:59] LABS: Basophils # (auto) 0.02 K/uL (0.00-0.20); Basophils % (auto) 0.2 %; Hematocrit (blood only) 35.6 % (42.0-52.0); Hemoglobin 11.9 g/dl (14.0-18.0); Immature Granulocytes # (auto) 0.04 K/uL (0.01-0.20); Immature Granulocytes % (auto) 0.4 %; Lymphocytes % (auto) 10.1 %; Mean Corpuscular Hemoglobin 32.4 pg (25.0-34.0); Mean Corpuscular Hgb Conc 33.4 g/dL (32.0-36.0); Mean Platelet Volume 10.6 fL (9.4-12.4); Monocytes # (auto) 1.17 K/uL (0.11-0.59); Monocytes % (auto) 10.7 %; Neutrophils % (auto) 78.6 %; Platelet Count 131 K/uL (130-400); RDW Standard Deviation 46.6 fL (36.4-46.3); Red Blood Count 3.67 M/uL (4.70-6.10); White Blood Count 10.93 K/ul (4.8-10.8)
[2023-03-23 18:00] LABS: Troponin I High Sensitivity 4.4 pg/ml (0-20)
[2023-03-23 18:10] LABS: Thyroid Stimulating Hormone 1.758 uIu/ml (0.300-4.500)
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
[2023-03-23 18:30] LABS: INR 1.1 (0.9-1.1); Partial Thromboplastin Time 28 Seconds (21-31); Prothrombin Time 11.7 Seconds (9.0-12.0)
--- NOTE | 2023-03-23 18:46 | CT Scan Report ---
HEAD CT NONCONTRAST CT DOSE: HISTORY: syncope TECHNIQUE: Multiaxial CT images of the head were performed without the use of intravenous contrast. A utomated exposure control was utilized for this study. A dose lowering technique was utilized adheri ng to the principles of ALARA. Comparison: Head CT 07/08/2021. Findings: The paranasal sinuses and mastoid air cells are clear. The calvarium and skull base are int act. The ventricles and sulci are within normal limits. There is no mass, hematoma, midline shift, or acute infarct. Old bilateral cerebellar infarcts again noted. Impression: 1. No acute infarct or intracranial hemorrhage. 2. Old bilateral cerebellar infarcts, unchanged. ACT 112: Negative or not required by law. Electronically signed by: Cisco Mera M.D. 03/23/2023 6:44 PM
--- NOTE | 2023-03-23 18:51 | CT Scan Report ---
CERVICAL SPINE CT CT DOSE: 1334.72 mGy.cm HISTORY: trauma TECHNIQUE: Multiaxial CT images of the cervical spine were performed and reformatted in the sagittal and coronal plane without the use of contrast. A dose lowering technique was utilized adhering to th e principles of ALARA. COMPARISON: Cervical spine CT 07/08/2021. FINDINGS: No fractures. No subluxation. Prevertebral soft tissues and the C1-C2 interval are intact. No pneumothorax. Degenerative changes again noted most pronounced at the C5-C6 level. IMPRESSION: No fractures within the cervical spine. ACT 112: Negative or not required by law. Electronically signed by: Cisco Mera M.D. 03/23/2023 6:48 PM
[2023-03-23] MEDS ORDERED: LORazepam 1 MG/1 ML SYR ED Inj Use IV STA (23:11)
[2023-03-23] MEDS ORDERED: LORazepam 1 MG/1 ML SYR ED Inj Use ONE (23:15)
[2023-03-24] MEDS ORDERED: LORazepam 1 MG/1 ML SYR ED Inj Use IV STA (00:11)
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
[2023-03-24 01:02] LABS: Appearance Urine Turbid (Clear); Bacteria Urine Automated Negative (Negative); Blood Urine Negative (Negative); Color Urine Orange; Epithelial Cell Urine Auto >30 /lpf (0-5); Glucose Urine UA Negative (Negative); Ketones Urine 2+ (Negative); Leukocyte Esterase Urine Negative (Negative); Nitrite Urine Negative (Negative); Protein Urine 2+ (Negative); Specific Gravity Urine 1.026 (1.000-1.030); Urobilinogen Urine Negative (Negative); WBC Urine Automated >30 /hpf (0-5); pH Urine 5.5 (4.5-7.5)
[2023-03-24 01:03] LABS: Bilirubin Urine 1+ (Negative)
[2023-03-24 01:26] LABS: Mucus Urine Present (None Prsent)
[2023-03-24 01:27] LABS: Renal Epithelial Cells Urine 0-5 /lpf (0-5)
[2023-03-24] MEDS ORDERED: LORazepam 1 MG in SYRINGE 0.5 ML IV PRN (02:04)
[2023-03-24] MEDS ORDERED: Ativan IV Alcohol Withdrawal--Active Protocol IV PRN (02:04)
[2023-03-24] MEDS ORDERED: LORazepam 2 MG in SYRINGE 1 ML IV PRN (02:04)
[2023-03-24] MEDS ORDERED: NITROGLYCERIN SL 0.4 MG/TAB TAB SL PRN (02:04)
[2023-03-24] MEDS ORDERED: GABAPENTIN 600 MG TAB PO ONE (02:04)
[2023-03-24] MEDS ORDERED: GABAPENTIN 1200MG ALCOHOL WITHDRAWAL LOAD PO STA (02:04)
[2023-03-24] MEDS ORDERED: MULTI-VITAMIN INFUSION 10 ML, THIAMINE HCL 100 MG, FOLIC ACID 1 MG in SODIUM CHLORIDE 0... IV ONE (02:04)
[2023-03-24] MEDS ORDERED: LORazepam 3 MG in SYRINGE 1.5 ML IV PRN (02:04)
[2023-03-24] MEDS ORDERED: SODIUM CHLORIDE 0.9% 1,000 ML IV SCH (02:04)
[2023-03-24] MEDS: GABAPENTIN 600 MG TAB PO SCH ×2 (06:14→12:07)
--- NOTE | 2023-03-24 07:49 | Electrocardiogram Report ---
Test Reason : Blood Pressure : / mmHG Vent. Rate : 088 BPM Atrial Rate : 088 BPM P-R Int : 206 ms QRS Dur : 088 ms QT Int : 362 ms P-R-T Axes : 058 037 064 degrees QTc Int : 438 ms Normal sinus rhythm When compared with ECG of 23-MAR-2023 16:48, (unconfirmed) Sinus rhythm has replaced Atrial fibrillation Confirmed by Torin Villagran ([id number]) on 03/24/2023 7:49:17 AM Referred By: REFERRED SELF Confirmed By:Cornelio Villagran
--- NOTE | 2023-03-24 07:50 | Electrocardiogram Report ---
Test Reason : Blood Pressure : / mmHG Vent. Rate : 108 BPM Atrial Rate : 000 BPM P-R Int : 000 ms QRS Dur : 086 ms QT Int : 294 ms P-R-T Axes : 000 036 066 degrees QTc Int : 393 ms Atrial fibrillation with rapid ventricular response Abnormal ECG When compared with ECG of 08-JUL-2021 14:15, Atrial fibrillation has replaced Sinus rhythm QT has shortened Confirmed by Torin Villagran ([id number]) on 03/24/2023 7:49:26 AM Referred By: REFERRED SELF Confirmed By:Cornelio Villagran
--- NOTE | 2023-03-24 07:52 | Electrocardiogram Report ---
Test Reason : Blood Pressure : / mmHG Vent. Rate : 088 BPM Atrial Rate : 088 BPM P-R Int : 200 ms QRS Dur : 088 ms QT Int : 362 ms P-R-T Axes : 059 043 075 degrees QTc Int : 438 ms Normal sinus rhythm Abnormal ECG When compared with ECG of 23-MAR-2023 20:06, (unconfirmed) No significant change was found Confirmed by Torin Villagran ([id number]) on 03/24/2023 7:52:27 AM Referred By: REFERRED SELF Confirmed By:Cornelio Villagran
[2023-03-24 08:45] LABS: BUN Creatinine Ratio 22.4 (10-20); Creatinine Clr Calc Pharmacy 110.6 ml/min; Est GFR (African American) 113.3 ml/min; Est GFR (Non-African American) 97.8 ml/min; Magnesium 1.9 mg/dl (1.7-2.4); Phosphorus 2.7 mg/dl (2.5-4.9)
[2023-03-24 08:57] LABS: Mean Corpuscular Hemoglobin 32.5 pg (25.0-34.0); Mean Corpuscular Hgb Conc 33.3 g/dL (32.0-36.0); Mean Corpuscular Volume 97.5 fL (80.0-100.0); Mean Platelet Volume 10.8 fL (9.4-12.4); Platelet Count 97 K/uL (130-400); Platelet Estimate Decreased (Normal); RDW Standard Deviation 46.6 fL (36.4-46.3); Red Blood Count 2.77 M/uL (4.70-6.10); White Blood Count 6.92 K/ul (4.8-10.8)
[2023-03-24] MEDS ORDERED: THIAMINE HCL 100 MG in SYRINGE 9 ML IV SCH (09:00)
[2023-03-24] MEDS ORDERED: ASPIRIN 81 MG ECTAB PO SCH (09:00)
[2023-03-24] MEDS ORDERED: ENOXAPARIN INJ 40 MG/0.4 ML SYR SQ SCH (09:00)
[2023-03-24] MEDS ORDERED: ROSUVASTATIN CALCIUM 20 MG TAB PO SCH (09:00)
[2023-03-24] MEDS ORDERED: lisinopril 10 MG TAB PO SCH (09:00)
[2023-03-24] MEDS ORDERED: CEROVITE ADV FORMULA TAB PO SCH (09:00)
[2023-03-24] MEDS ORDERED: METOPROLOL SUCC 50MG EXT REL TAB PO SCH (09:00)
[2023-03-24] MEDS ORDERED: CLOPIDOGREL BISULFATE 75 MG TAB PO SCH (09:00)
[2023-03-24] MEDS ORDERED: FOLIC ACID 1 MG in SYRINGE 9.8 ML IV SCH (09:00)
[2023-03-24 09:08] LABS: Folate (Folic Acid),Ser orPlas > 22.30 ng/ml (>5.38)
[2023-03-24 09:09] LABS: Vitamin B12 531 pg/ml (180-914)
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
--- NOTE | 2023-03-24 16:04 | Discharge Summary ---
Date of Service March 24, 2023 Admission HPI Per Admitting Provider 63-year-old male with past medical history significant for hypertension, CAD s/p stent, hypertension, history of chronic cerebral ischemia, history of left left vertebral artery stenosis and occlusion, history of carotid artery stenosis bilateral, hypertension, degenerative disease, backache, tobacco use disorder, anxiety with depression, ongoing alcohol use, presents with fall and in the ER he had a transient atrial fibrillation. Patient drinks 5 beers daily and last 2 weeks he is also drinking whiskey 4-5 shots on top of the beers. Last 2 days he stopped drinking as he want to quit drinking. Today was not feeling well. Feeling dizzy. He was laying on the bed,when he fell from the bed and hit his left brow region. Does not think he lost consciousness. Feeling weak. Patient seems was shaking. He was given IV fluids and benzos and magnesium. Currently resting comfortably and hemodynamically stable. Patient agreed to stay overnight as he had an episode of A-fib in the ER, to get echo and cardiac evaluation. Would like to go home tomorrow with Ativan. Denies any chest pain or shortness of breath. Currently no nausea. No abdominal pain. Normal bowel and bladder movements. No cough. No fevers. Vision is okay. Past medical history. As mentioned above Past surgical history. Colonoscopy. Right leg fracture repair. Removal of left deep cyst. Tonsillectomy and adenoidectomy. Social history. . Smokes 1 pack a day for 30 years. Alcohol drinks around 5 beers daily and lately last 2 weeks was drinking 4-5 shots of whiskey daily. No drug use Family history. Father had diabetes. Admission Exam Per Admitting Provider General- Not in distress Head- mild bruise seen on left brow region Eyes- PERRL. ENT- oropharynx clear Neck- supple, no JVD. Lungs- clear to auscultation, no wheezing or crackles. Heart- regular rhythm; no murmur, no gallop. Abdomen- normal bowel sounds, soft, nontender, no distension Extremities- no pretibial edema, no erythema seen. Neuro- alert, oriented x 3; PERRL,; no facial palsy; no dysarthria; moves extremities. Skin- warm & dry Principal Diagnosis Fall, new onset Afib, alcoholism/ withdrawal Discharge Exam General- WD/WN M in NAD Head- mild bruise seen on left brow region Eyes- PERRL. Neck- supple, no JVD. Lungs- clear to auscultation, no wheezing or crackles. Heart- regular rhythm; no murmur, no gallop. Abdomen- normal bowel sounds, soft, nontender, no distension Extremities- no pretibial edema, no erythema seen. Neuro- alert, oriented x 3; PERRL,; no facial palsy; no dysarthria; moves extremities. Skin- warm & dry Discharge Data Allergies Allergy/AdvReac Type Severity Reaction Status Date / Time No Known Allergies Allergy Verified 07/08/21 15:43 Consultations 03/23/23 20:01 ED Decision to Admit Stat 03/24/23 08:00 Consult Cardiology Routine Ordered Studies 03/23/23 17:30 CT cervical spine wo con Stat FINDINGS: No fractures. No subluxation. Prevertebral soft tissues and the C1-C2 interval are intact. No pneumothorax. Degenerative changes again noted most pronounced at the C5-C6 level. IMPRESSION: No fractures within the cervical spine. CT head/brain wo con Stat Findings: The paranasal sinuses and mastoid air cells are clear. The calvarium and skull base are intact. The ventricles and sulci are within normal limits. There is no mass, hematoma, midline shift, or acute infarct. Old bilateral cerebellar infarcts again noted. Impression: 1. No acute infarct or intracranial hemorrhage. 2. Old bilateral cerebellar infarcts, unchanged. Hospital Course (1) Atrial fibrillation, new onset: 63-year-old male with past medical history significant for hypertension, CAD s/p stent, hypertension, history of chronic cerebral ischemia, history of left left vertebral artery stenosis and occlusion, history of carotid artery stenosis bilateral, hypertension, degenerative disease, backache, tobacco use disorder, anxiety with depression, ongoing alcohol use, presents with fall and in the ER he had a transient atrial fibrillation. Patient drinks 5 beers daily and last 2 weeks he is also drinking whiskey 4-5 shots on top of the beers. Last 2 days he stopped drinking as he want to quit drinking. Today was not feeling well. Feeling dizzy. He was laying on the bed,when he fell from the bed and hit his left brow region. Does not think he lost consciousness. Feeling weak. Patient seems was shaking. He was given IV fluids and benzos and magnesium. Currently resting comfortably and hemodynamically stable. Patient agreed to stay overnight as he had an episode of A-fib in the ER, to get echo and cardiac evaluation. Would like to go home tomorrow with Ativan. Denies any chest pain or shortness of breath. A-fib new onset Paroxysmal Currently in sinus rhythm Continue home metoprolol succinate Telemetry floor Echocardiogram obtained - normal LV wall thickness. No regional wall motion abnormalities noted. LV systolic function is normal. EF 60 to 65%. RV is normal in size and function. Grade 1 diastolic dysfunction. There is no significant valve disease. Consulted cardiology - given pt's falls , anticoagulation not recommended at this time. Cont. current medical regimen. Ongoing alcoholism Banana bag IV thiamine folic acid Alcohol withdrawal protocol with gabapentin and IV Ativan as needed Closely monitor Quit drinking 2 days ago Discussed with pt and at the bedside - pt reports he is quitting drinking. Discussed with them that ideally we would monitor the pt here for the withdrawal and help him with medications to get through it. Pt would like to be discharged home. Per RN, pt is independent and ambulatory. Plan for close follow up with PCP, will send rx for gabapentin, thiamine and folic acid. History of CAD s/p stent On aspirin, Plavix statin and beta-ashley, continue Hypertension On lisinopril and metoprolol, continue Will monitor History of carotid artery stenosis bilateral History of left vertebral artery stenosis On aspirin Plavix and statin, cont. Total Time Total Time Spent Total Time Spent (In Minutes): 40 Discharge Plan Discharge Items Patient Disposition: Home - Self-Care Reason For Visit: FALL, A-FIB, ALCOHOLISM Discharge Diagnosis: Fall, new onset Afib, alcoholism/ withdrawal Activity: Per Instructions section Non-emergency contact: Primary Care Provider Call non-emergency contact if: you have any medication questions and your symptoms worsen Follow-up/Referrals: Keaton Jackson MD [Primary Care Provider] - Diet: Heart Healthy Addtl Attending Provider Instructions: Follow up with primary care doctor within 1 week. It is crucial that you abstain from alcohol. Finish treatment with gabapentin. Take thiamine and folic acid daily as prescribed. Pending Studies at Discharge: Yes Studies:: final urine cultx Stand-Alone Forms: My Xand, Smoking Cessation Medications and DC Order Prescriptions: New gabapentin 600 mg Tablet 600 mg PO BID Qty: 4 0RF thiamine HCl (vitamin B1) 100 mg tablet 100 mg PO DAILY Qty: 30 0RF folic acid 1 mg tablet 1 mg PO DAILY Qty: 30 0RF Continued rosuvastatin 40 mg tablet 40 mg PO DAILY metoprolol succinate 100 mg tablet extended release 24 hr 100 mg PO QAM clopidogrel 75 mg tablet 75 mg PO QAM aspirin 81 mg Tablet,Delayed Release (Dr/Ec) 81 mg PO QAM lisinopril 10 mg tablet 10 mg PO QAM sildenafil (pulm.hypertension) 20 mg tablet 40 - 60 mg PO UD PRN (Reason: 30 min --4hrs before intercoarse) Men's 50 Plus Multivitamin 400-20-370 mcg Tablet 1 tab PO DAILY Discharge Orders: Discharge Order (Routine); Ordered 03/24/23 Ordered By: Deonte Espinoza Admission Data Admit Date/Time: 03/24/23 00:20 Attending Provider: Deonte Espinoza Admit Provider: Tucker Go Primary Care Provider: Keaton Jackson Other Providers: Tucker Go; Pepe Johnson
[2023-03-24] MEDS ORDERED: GABAPENTIN 600 MG TAB PO SCH (20:45)
[2023-03-26] MEDS ORDERED: GABAPENTIN 600 MG TAB PO SCH (00:45)
[2023-03-27] MEDS ORDERED: GABAPENTIN 600 MG TAB PO SCH (12:45)
== END 2023-03-24 16:46 | disposition home or self-care (01) ==
LOC: ED 16:41 → 2S 03-24 00:20 → INTOOBSV 03-24 00:20 → 2S 03-24 01:43